=== PATIENT | female | born 1975 | race Asian ===

== ENCOUNTER 2020-09-26 15:07 | Outpatient (CLI) | payer BC | END 2020-09-26 15:08 | disposition home or self-care (01) | LOC: CSHMRI 15:07 | PROVIDERS: ATTEND Internal Medicine Hematology & Oncology | DX: C50.911 Malignant neoplasm of unspecified site of right female breast (principal); R59.0 Localized enlarged lymph nodes | CPT/HCPCS: C8908 ==